=== PATIENT | male | born 1965 | race Caucasian/White ===

== ENCOUNTER 2018-01-06 12:48 | Day surgery (SDC) | payer BC ==
[2018-01-06] MEDS: SOD CHLORIDE 0.9% 1,000 ML IV (07:00)
[~2018-01-06 12:48] MED LIST: CEFAZOLIN 2 GM/50 ML (PMX) 50 ML IVPB; DEXAMETHASONE 4 MG/ML 1 ML INJ; LIDOCAINE 2% (SDV) 5 ML INJ; ROCURONIUM 50 MG INJ
[2018-01-06] MEDS ORDERED: POLYMYXIN B 500000 UNIT INJ (16:43)
[2018-01-06] MEDS ORDERED: OXYCODONE/ACETAMINOPHEN (5/325) TAB PO ×3 (17:00→19:30)
[2018-01-06] MEDS ORDERED: MEPERIDINE 25 MG INJ IV (17:00)
[2018-01-06] MEDS ORDERED: LABETALOL HCL 20MG INJ IV (17:00)
[2018-01-06] MEDS ORDERED: ONDANSETRON 4 MG INJ IV (17:00)
[2018-01-06] MEDS ORDERED: FENTAnyl 50 MCG/ML VIAL IV ×3 (17:00)
[2018-01-06] MEDS ORDERED: hydrALAzine 20 MG INJ IV (17:00)
[2018-01-06] MEDS ORDERED: EPHEDrine SULFATE 50 MG/5 ML SYG IV (17:00)
[2018-01-06] MEDS ORDERED: DIPHENHYDRAMINE 50 MG INJ IV (17:00)
[2018-01-06] MEDS ORDERED: ALBUTEROL 0.083% (NEB) 2.5 MG/3 ML AMP HHN (17:00)
[2018-01-06] MEDS ORDERED: KETOROLAC 30 MG INJ IV (17:00)
[2018-01-06] MEDS ORDERED: HYDROmorphONE 1 MG/5 ML IV SYRINGE IV ×3 (17:00)
[2018-01-06] MEDS: BUPIVACAINE 0.25%/EPI (SDV) 30 ML INJ ×2 (17:42→19:01)
[2018-01-06] MEDS: POLYMYXIN/BACITRACIN 1L IRRIG IRR (17:42)
[2018-01-06] MEDS ORDERED: PROPOFOL 20 ML (18:59)
[2018-01-06] MEDS ORDERED: CEFAZOLIN 1 GM INJ (18:59)
[2018-01-06] MEDS ORDERED: ROCURONIUM 50 MG INJ (18:59)
[2018-01-06] MEDS ORDERED: DEXAMETHASONE 4 MG/ML 1 ML INJ (19:00)
[2018-01-06] MEDS ORDERED: ONDANSETRON 4 MG INJ (19:01)
[2018-01-06] MEDS ORDERED: SUGAMMADEX SODIUM 200 MG/2 ML VIAL IV (19:01)
[2018-01-06] MEDS ORDERED: IBUPROFEN 600 MG TAB PO (19:30)
[2018-01-06] MEDS: KETOROLAC 30 MG INJ IV (19:31)
[2018-01-06] MEDS: OXYCODONE/ACETAMINOPHEN (5/325) TAB PO (19:31)
[2018-01-06] MEDS: ONDANSETRON 4 MG INJ IV (19:31)
== END 2018-01-06 21:04 | disposition home or self-care (01) ==
LOC: SDS 12:48
DX: K40.90 Unilateral inguinal hernia, without obstruction or gangrene, not specified as recurrent (principal); K42.9 Umbilical hernia without obstruction or gangrene
CPT/HCPCS: 49505